=== PATIENT | male | born 1960 | race Caucasian/White ===

== ENCOUNTER → 2024-10-31 | Outpatient (CLI) | payer OTHER | END | disposition home or self-care (01) | LOC: RAD 11:19 | PROVIDERS: ATTEND Physician Assistant | DX: M95.8 Other specified acquired deformities of musculoskeletal system (principal); M47.812 Spondylosis without myelopathy or radiculopathy, cervical region; Z00.00 Encounter for general adult medical examination without abnormal findings | CPT/HCPCS: 71046 ==